=== PATIENT | male | born 1985 | race Caucasian/White ===

== ENCOUNTER 2018-09-18 12:12 | Emergency (ER) | payer OTHER ==
[~2018-09-18] VITALS: Ht 170.2 cm; Wt 81.8 kg
[2018-09-18] MEDS ORDERED: RANI15TA PO (12:27)
[2018-09-18] MEDS ORDERED: PRAZ1CAP PO (12:27)
[2018-09-18] MEDS ORDERED: HYDR-3363 PO (12:27)
[2018-09-18] MEDS ORDERED: OMEP40CA2 PO (12:27)
[2018-09-18 14:57] LABS: BASO # 0.1 10^3/uL (0.0-0.2); EOS # 0.2 10^3/uL (0.0-0.50); EOS % 2.9 % (0.0-3.0); HEMATOCRIT 47.7 % (42.0-52.0); HEMOGLOBIN 16.8 g/dl (13.5-17.5); LYMPH # 2.2 10^3/uL (1.5-4.5); LYMPH % 32.2 % (24.0-44.0); MEAN CORPUSCULAR HEMOGLOBIN 30.9 pg (27.0-33.0); MEAN CORPUSCULAR HGB CONC 35.2 g/dl (32.0-36.5); MEAN CORPUSCULAR VOLUME 87.7 fl (80.0-96.0); MONO # 0.6 10^3/uL (0.0-0.8); MONO % 8.4 % (0.0-5.0); NEUTROPHILS # 3.8 10^3/uL (1.8-7.7); NEUTROPHILS % 55.2 % (36.0-66.0); PLATELET COUNT, AUTOMATED 269 10^3/uL (150-450); RED BLOOD COUNT 5.44 10^6/uL (4.30-6.10); WHITE BLOOD COUNT 6.9 10^3/uL (4.0-10.0)
--- NOTE | 2018-09-18 15:05 | REP ---
Clinical: Acute chest pain . Comparison: None . Technique: PA and lateral. Findings: The mediastinum and cardiac silhouette are normal. The lung carmona are clear and without acute consolidation, effusion, or pneumothorax. The skeletal structures are intact and normal. Impression: 1. No acute cardiopulmonary process. Electronically Signed by Alistair Tee MD 09/18/2018 02:57 P
[2018-09-18 15:09] LABS: INR 0.96; PARTIAL THROMBOPLASTIN TIME 31.3 SECONDS (25.4-37.6); PROTHROMBIN TIME 12.9 SECONDS (12.1-14.4)
[2018-09-18 15:12] LABS: D-DIMER QUANT 357.45 ng/ml (<500)
[2018-09-18 15:21] LABS: ALBUMIN 4.4 GM/DL (3.2-5.2); ALT/SGPT 40 U/L (12-78); BILIRUBIN,DIRECT 0.1 MG/DL (0.0-0.2); BILIRUBIN,TOTAL 0.4 MG/DL (0.2-1.0); BLOOD UREA NITROGEN 12 MG/DL (7-18); CALCIUM LEVEL 8.7 MG/DL (8.5-10.1); CARBON DIOXIDE LEVEL 28 MEQ/L (21-32); CHLORIDE LEVEL 103 MEQ/L (98-107); CPK CREATINE PHOSPHOKINASE 163 U/L (39-308); CREATININE FOR GFR 1.09 MG/DL (0.70-1.30); FREE T4 0.84 NG/DL (0.76-1.46); GLOMERULAR FILTRATION RATE > 60.0 (>60); GLUCOSE, FASTING 118 MG/DL (70-100); LIPASE 107 U/L (73-393); MB/CK RELATIVE INDEX 0.86 (< OR =4); POTASSIUM SERUM 3.9 MEQ/L (3.5-5.1); SODIUM LEVEL 138 MEQ/L (136-145); TOTAL PROTEIN 7.7 GM/DL (6.4-8.2); TROPONIN I < 0.02 NG/ML (< 0.10)
[2018-09-18] MEDS ORDERED: GI COCKTAIL 50ML BTL(HYOSCYAMINE/MAALOX/LIDOCAINE VISCOUS)(1:3:1) PO ONE (15:45)
[2018-09-18] MEDS ORDERED: PANTOPRAZOLE 40MG INJ (PROTONIX) (C9113) IV ONE (15:45)
[2018-09-18 16:09] VITALS: BP 135/84
--- NOTE | 2018-09-19 21:02 | ECGEPIP ---
Stationary ECG Study [facility] - ED Test Date: 2018-09-18 Pat Name: ENOC AKERS Department: Room: - Gender: M [employer]: stephanie : 1985 Requested By: KATHY REYNAGA PA-C. Order Number: [id number] Reading MD: Omar Hoang Measurements Intervals [place] Rate: 71 P: 39 HI: 134 QRS: 56 QRSD: 93 T: 29 QT: 366 QTc: 398 Interpretive Statements SINUS RHYTHM NO PRIORS FOR COMPARISON Electronically Signed On 09-19-2018 21:02:08 EST by Omar Hoang
== END 2018-09-18 16:41 | disposition home or self-care (01) ==
LOC: M ED 12:12
DX: R07.89 Other chest pain (principal); K21.9 Gastro-esophageal reflux disease without esophagitis; F32.9 Major depressive disorder, single episode, unspecified; Z79.899 Other long term (current) drug therapy
CPT/HCPCS: 71046; 80048; 80076; 82550; 82553; 83690; 84439; 84443; 84484; 85025; 85379; 85610; 85730; 93005; 96374; 99284; C9113

== ENCOUNTER → 2018-12-19 | Outpatient (CLI) | payer OTHER ==
[~2018-12-19] MED LIST: HYDR-3363 PO; OMEP40CA2 PO; PRAZ1CAP PO; RANI15TA PO
--- NOTE | 2018-12-20 04:01 | REP ---
Clinical: Testicular mass/lump. Technique: Real time chowdhury scale and color Doppler evaluation using linear high frequency transducer. Findings: The bilateral testicles and epididymi appear normal in contour, size, echogenicity, and vascularity without evidence for intratesticular mass lesion, infectious/inflammatory process, or torsion. Small right and small/moderate left nonspecific hydroceles are identified. Mild early varicoceles cannot be excluded. Posterior to the and separate from the left testicle and epididymis is a round well circumscribed isoechoic nonvascular lesion measuring 1.2 cm diameter. This is otherwise nonspecific by appearance. The patient gives a history of prior vasectomy and varicocele procedures and correlation/comparison with prior examinations if available may be warranted. Impression: Well circumscribed 1.2 cm isoechoic lesion along the posterior left lesvia scrotum separate from the testicle and epididymis is otherwise nonspecific. Differential diagnosis may include mass as well as focal thrombus or chronic granuloma related to prior surgeries. Electronically Signed by Alistair Tee MD 12/20/2018 03:53 A
== END ==
LOC: M RAD 13:13
PROVIDERS: ATTEND Physician Assistant
DX: N50.9 Disorder of male genital organs, unspecified (principal)

== ENCOUNTER → 2019-04-06 | Outpatient (CLI) | payer OTHER ==
--- NOTE | 2019-04-06 15:55 | REP ---
HISTORY: Pain, status post cyst removal. COMPARISON: The testicles are unchanged in size, shape, and echo pattern. The vascular pattern is again seen to be within normal limits bilaterally. Inferior and lateral to left testicle, there is a 3 x 2.4 x 1 cm sized nearly anechoic structure, but having low level echoes within it and a 2 mm sized echogenic focus within it. This was not present or not imaged on the prior exam. The nodular area seen previously adjacent to the left testicle is no longer present. There is evidence of a hydrocele bilaterally, small to moderate. The right testicular RI is 0.55 and the left is 0.44. IMPRESSION: Cystic appearing area in the left hemiscrotum which is extra testicular in location and the exact etiology of which is uncertain. Since the patient has recently undergone a procedure I cannot rule out the possibility of a small seroma or resolving hematoma. I would recommend followup to ensure resolution. Electronically Signed by Angel Briggs DO 04/06/2019 04:05 P
== END ==
LOC: M RAD 13:49
PROVIDERS: ATTEND Physician Assistant
DX: N50.819 Testicular pain, unspecified (principal)

== ENCOUNTER → 2023-03-07 | Outpatient (CLI) | payer OTHER ==
[~2023-03-07] MED LIST changes: -OMEP40CA2 PO; +OMEP40CA4 PO
== END ==
LOC: M RAD 14:56
PROVIDERS: ATTEND Physician Assistant
DX: M25.521 Pain in right elbow (principal); M25.522 Pain in left elbow; M25.422 Effusion, left elbow; M19.022 Primary osteoarthritis, left elbow; M25.421 Effusion, right elbow; M75.21 Bicipital tendinitis, right shoulder

== ENCOUNTER → 2023-12-08 | Outpatient (CLI) | payer OTHER | LOC: M PLARAD 15:35 | PROVIDERS: ATTEND Physician Assistant | DX: M25.532 Pain in left wrist (principal) ==